=== PATIENT | male | born 1935 | race Caucasian/White ===

== ENCOUNTER 2016-05-01 18:55 | Inpatient (IN) | payer OTHER ==
[~2016-05-01] VITALS: Ht 182.9 cm; Wt 86.0 kg
[~2016-05-01 18:55] MED LIST: CIPR500T3 PO; DIVA125T2 PO; HYDR-3307; HYDR1TAB14 PO; INDO25CA PO; LEVO100C2; LEVO88TA2 PO; METF-86 PO; METO-95 PO; TIOT18CA INH; ZOLP-413 PO
[2016-05-01] MEDS ORDERED: SODIUM CHLORIDE FLUSH 10ML SYR IVF ONE (19:30)
[2016-05-01] MEDS ORDERED: ONDANSETRON 2MG/ML, 2ML IVPush ONE (19:30)
[2016-05-01] MEDS ORDERED: HYDR-3144 PO (19:47)
[2016-05-01] MEDS ORDERED: LOVA40TA2 PO (19:47)
[2016-05-01] MEDS ORDERED: MORPHINE SULFATE 4 MG/ML, 1ML ONE ×3 (20:17→22:39)
[2016-05-01] MEDS: MORPHINE SULFATE 4 MG/ML, 1ML IVPush PRN ×2 (20:20→22:43)
[2016-05-01 21:42] LABS: HEMOGLOBIN 12.8 g/dL (13.7-18.0)
[2016-05-01 21:54] LABS: BLOOD UREA NITROGEN 21 mg/dL (7-18)
[2016-05-01] MEDS ORDERED: HYDROcodone/APAP 10/325 MG TABLET PO SCH (22:30)
[2016-05-01] MEDS ORDERED: KETOROLAC 30 MG/1 ML IVPush PRN (22:30)
[2016-05-01] MEDS ORDERED: DOCUSATE 100 MG CAPSULE PO PRN (23:00)
[2016-05-01] MEDS ORDERED: POLYETHYLENE GLYCOL 17 GM PACKET PO PRN (23:00)
[2016-05-01] MEDS: INSULIN REGULAR 100 UNITS/ML, 3ML VIAL SQ-INSULIN SCH (23:00)
[2016-05-01] MEDS ORDERED: BISACODYL 10 MG SUPP PR PRN (23:00)
[2016-05-01] MEDS ORDERED: ACETAMINOPHEN 325 MG TABLET PO PRN (23:00)
[2016-05-01] MEDS ORDERED: NORCO MC SCH (23:30)
[2016-05-01 23:42] VITALS: BP 140/72
[2016-05-02] MEDS: MORPHINE SULFATE 4 MG/ML, 1ML IVPush PRN ×6 (00:14→22:17)
[2016-05-02 03:11] VITALS: BP 138/71
[2016-05-02] MEDS: LEVOTHYROXINE 88 MCG TABLET PO SCH (05:09)
[2016-05-02] MEDS: HYDROcodone/APAP 10/325 MG TABLET PO PRN ×3 (06:21→23:44)
[2016-05-02 06:45] VITALS: BP 123/66
[2016-05-02] MEDS: INSULIN REGULAR 100 UNITS/ML, 3ML VIAL SQ-INSULIN SCH ×4 (07:00→19:30)
[2016-05-02 07:42] LABS: BLOOD UREA NITROGEN 20 mg/dL (7-18)
[2016-05-02 07:46] LABS: ASPARTATE AMINO TRANSFERASE 13 U/L (15-37)
[2016-05-02] MEDS ORDERED: INDOMETHACIN 25 MG CAPSULE PO SCH (09:00)
[2016-05-02] MEDS: IPRATROPIUM 0.5 MG/2.5 ML INHA HHN SCH ×3 (09:00→21:00)
[2016-05-02] MEDS: METOPROLOL SUCCINATE 100 MG TAB.ER.24H PO SCH (09:00)
[2016-05-02 12:29] VITALS: BP 117/70
[2016-05-02 18:43] VITALS: BP 158/81
[2016-05-02] MEDS ORDERED: GLUCAGON 1 MG IM PRN (21:30)
[2016-05-02] MEDS ORDERED: DEXTROSE 4 GM TAB.CHEW PO PRN (21:30)
[2016-05-02] MEDS ORDERED: DEXTROSE 50%, 50ML SYRINGE IVPush PRN (21:30)
[2016-05-02] MEDS: DIVALPROEX 125 MG TABLET.DR PO SCH (22:17)
[2016-05-02] MEDS: LOVASTATIN 40 MG TABLET PO SCH (22:17)
[2016-05-02] MEDS: ZOLPIDEM 5MG TABLET PO SCH (22:19)
[2016-05-02] MEDS: HEPARIN 5,000 UNITS/ML, 1ML SQ SCH (22:29)
[2016-05-03 01:45] VITALS: BP 99/57
[2016-05-03] MEDS: MORPHINE SULFATE 4 MG/ML, 1ML IVPush PRN ×7 (02:11→22:39)
[2016-05-03] MEDS: IPRATROPIUM 0.5 MG/2.5 ML INHA HHN SCH ×4 (03:00→22:59)
[2016-05-03] MEDS: LEVOTHYROXINE 88 MCG TABLET PO SCH (05:07)
[2016-05-03] MEDS: HEPARIN 5,000 UNITS/ML, 1ML SQ SCH ×3 (05:10→22:40)
[2016-05-03] MEDS: HYDROcodone/APAP 10/325 MG TABLET PO PRN ×5 (05:11→22:50)
[2016-05-03] MEDS: INSULIN REGULAR 100 UNITS/ML, 3ML VIAL SQ-INSULIN SCH ×4 (07:00→21:18)
[2016-05-03 07:05] VITALS: BP 95/59
[2016-05-03] MEDS: METOPROLOL SUCCINATE 100 MG TAB.ER.24H PO SCH (09:00)
[2016-05-03] MEDS: SODIUM CHLORIDE FLUSH 10ML SYR IVF SCH ×2 (09:19→22:40)
[2016-05-03 12:53] VITALS: BP 128/83
[2016-05-03 18:46] VITALS: BP 105/69
[2016-05-03] MEDS: DIVALPROEX 125 MG TABLET.DR PO SCH (21:16)
[2016-05-03] MEDS: LOVASTATIN 40 MG TABLET PO SCH (21:18)
[2016-05-03] MEDS: ZOLPIDEM 5MG TABLET PO SCH (21:18)
[2016-05-04 00:59] VITALS: BP 161/75
[2016-05-04] MEDS: MORPHINE SULFATE 4 MG/ML, 1ML IVPush PRN ×5 (01:40→18:24)
[2016-05-04] MEDS: IPRATROPIUM 0.5 MG/2.5 ML INHA HHN SCH ×4 (03:00→21:00)
[2016-05-04] MEDS: HEPARIN 5,000 UNITS/ML, 1ML SQ SCH ×3 (05:49→20:32)
[2016-05-04] MEDS: LEVOTHYROXINE 88 MCG TABLET PO SCH (05:50)
[2016-05-04] MEDS: HYDROcodone/APAP 10/325 MG TABLET PO PRN ×4 (06:39→20:29)
[2016-05-04] MEDS: INSULIN REGULAR 100 UNITS/ML, 3ML VIAL SQ-INSULIN SCH ×2 (06:40→11:13)
[2016-05-04 07:13] VITALS: BP 100/64
[2016-05-04] MEDS: METOPROLOL SUCCINATE 100 MG TAB.ER.24H PO SCH (09:10)
[2016-05-04] MEDS: SODIUM CHLORIDE FLUSH 10ML SYR IVF SCH ×2 (09:14→20:32)
[2016-05-04 13:48] VITALS: BP 115/75
[2016-05-04 20:06] VITALS: BP 108/67
[2016-05-04] MEDS: DIVALPROEX 125 MG TABLET.DR PO SCH (20:28)
[2016-05-04] MEDS: ZOLPIDEM 5MG TABLET PO SCH (20:30)
[2016-05-04] MEDS: LOVASTATIN 40 MG TABLET PO SCH (20:30)
[2016-05-05] MEDS: IPRATROPIUM 0.5 MG/2.5 ML INHA HHN SCH ×2 (03:00→10:02)
[2016-05-05 03:30] VITALS: BP 133/75
[2016-05-05] MEDS: HYDROcodone/APAP 10/325 MG TABLET PO PRN ×3 (05:32→14:34)
[2016-05-05] MEDS: LEVOTHYROXINE 88 MCG TABLET PO SCH (05:32)
[2016-05-05] MEDS: HEPARIN 5,000 UNITS/ML, 1ML SQ SCH ×2 (05:32→14:27)
[2016-05-05 06:39] VITALS: BP 112/70
[2016-05-05 09:59] VITALS: BP 115/71
[2016-05-05] MEDS: SODIUM CHLORIDE FLUSH 10ML SYR IVF SCH (10:01)
[2016-05-05] MEDS: METOPROLOL SUCCINATE 100 MG TAB.ER.24H PO SCH (10:01)
[2016-05-05 13:29] VITALS: BP 115/69
== END 2016-05-05 18:15 | DRG 563 ==
LOC: ED 21:58 → 4NOR 22:00
PROC: 2W3FX1Z Immobilization of Left Hand using Splint (ICD-10-PCS; principal; 2016-05-01)
DX: S82.001A Unspecified fracture of right patella, initial encounter for closed fracture (principal); J96.10 Chronic respiratory failure, unspecified whether with hypoxia or hypercapnia; F11.20 Opioid dependence, uncomplicated; S63.502A Unspecified sprain of left wrist, initial encounter; M10.9 Gout, unspecified; J44.9 Chronic obstructive pulmonary disease, unspecified; E03.9 Hypothyroidism, unspecified; E11.9 Type 2 diabetes mellitus without complications; G89.29 Other chronic pain; M54.5 Low back pain; R56.9 Unspecified convulsions; W18.30XA Fall on same level, unspecified, initial encounter; Z87.891 Personal history of nicotine dependence; Z98.1 Arthrodesis status; Z99.81 Dependence on supplemental oxygen
CPT/HCPCS: 36415; 70450; 80048; 80053; 80164; 81001; 82040; 82962; 83735; 84100; 85025; 85610; 96374; 96376; J1644; J1885

== ENCOUNTER 2017-05-09 18:03 | Inpatient (IN) | payer OTHER ==
[~2017-05-09] VITALS: Ht 182.9 cm; Wt 94.7 kg
[~2017-05-09 18:03] MED LIST changes: +HYDR-3245 PO; +LOVA40TA2 PO; +METF-162 PO; -METF-86 PO
[2017-05-09 18:51] LABS: BASOPHILS % (AUTO) 0 % (0-1); EOSINOPHILS # (AUTO) 0.01 x10^3/uL (0-0.4); EOSINOPHILS % (AUTO) 0 % (1-7); LYMPHOCYTES # (AUTO) 0.43 x10^3/uL (1-3.4); LYMPHOCYTES % (AUTO) 6 % (22-44); MD NO; MEAN CORPUSCULAR HEMOGLOBIN 31.7 pg (27.5-34.5); MEAN CORPUSCULAR HGB CONC 33.2 g/dL (33.2-36.2); MEAN CORPUSCULAR VOLUME 95.5 fL (81-97); MEAN PLATELET VOLUME 7.3 fL (7.4-10.4); MONOCYTES # (AUTO) 0.71 x10^3/uL (0.2-0.8); MONOCYTES % (AUTO) 10 % (2-9); NEUTROPHILS # (AUTO) 5.77 x10^3/uL (1.8-6.8); NEUTROPHILS % (AUTO) 83 % (42-75); PLATELET COUNT 107 x10^3/uL (130-400); RED BLOOD COUNT 3.98 x10^6/uL (4.38-5.82); RED CELL DISTRIBUTION WIDTH 14.2 % (9.4-14.8)
[2017-05-09] MEDS ORDERED: OXYC10TA6 PO (18:51)
[2017-05-09] MEDS ORDERED: HYDR-879 PO (18:56)
[2017-05-09 19:00] LABS: ALANINE AMINOTRANSFERASE 26 U/L (12-78); ALBUMIN 2.7 g/dL (3.4-5.0); ANION GAP 7 mmol/L (5-15); CHLORIDE 99 mmol/L (98-107)
[2017-05-09 19:05] LABS: ALKALINE PHOSPHATASE 79 U/L (45-117); BILIRUBIN,TOTAL 0.7 mg/dL (0.2-1.0); CREATININE 1.14 mg/dL (0.7-1.3); TOTAL PROTEIN 7.2 g/dL (6.4-8.2); TROPONIN I < 0.015 ng/mL (0.000-0.045)
[2017-05-09 21:20] LABS: CULTURE INDICATED? YES; MICROSCOPIC INDICATED
[2017-05-09] MEDS ORDERED: SODIUM CHLORIDE 0.9% 1,000 ML IV SCH (23:09)
[2017-05-09] MEDS ORDERED: ACETAMINOPHEN 325 MG TABLET PO PRN (23:30)
[2017-05-09] MEDS ORDERED: ENALAPRILAT 1.25 MG/ML, 2ML IVPush PRN (23:30)
[2017-05-09] MEDS ORDERED: hydrALAzine 20 MG/ML, 1ML IVPush PRN (23:30)
[2017-05-09] MEDS ORDERED: BISACODYL 10 MG SUPP PR PRN (23:30)
[2017-05-09] MEDS ORDERED: POLYETHYLENE GLYCOL 17 GM PACKET PO PRN (23:30)
[2017-05-09] MEDS ORDERED: ONDANSETRON 2MG/ML, 2ML IVPush PRN (23:30)
[2017-05-09 23:45] VITALS: BP 133/77
[2017-05-09] MEDS ORDERED: IPRATROPIUM 0.5 MG/2.5 ML INHA NPPB SCH (23:45)
[2017-05-10] MEDS ORDERED: ACETAMINOPHEN 500 MG TABLET PO SCH
[2017-05-10] MEDS ORDERED: CEFTRIAXONE PMX 1GM/50ML 50 ML IV SCH
[2017-05-10 00:13] LABS: FREE T4 (FREE THYROXINE) 1.27 ng/dL (0.76-1.46); THYROID STIMULATING HORMONE 0.211 mIU/L (0.358-3.740)
[2017-05-10 00:15] VITALS: BP 133/77
[2017-05-10 00:24] LABS: HEMOGLOBIN A1C 5.5 % (4.2-6.3)
[2017-05-10] MEDS: DIVALPROEX 125 MG TABLET.DR PO SCH ×3 (00:40→21:19)
[2017-05-10] MEDS: ENOXAPARIN 40 MG/0.4 ML SQ SCH ×2 (00:41→21:19)
[2017-05-10] MEDS: LOVASTATIN 40 MG TABLET PO SCH ×2 (00:41→21:19)
[2017-05-10] MEDS: GABAPENTIN 100 MG CAPSULE PO SCH ×4 (00:41→21:19)
[2017-05-10 05:36] LABS: ALBUMIN 2.4 g/dL (3.4-5.0); ANION GAP 7 mmol/L (5-15); CALCIUM 7.9 mg/dL (8.5-10.1); CHLORIDE 100 mmol/L (98-107)
[2017-05-10 05:40] LABS: ALANINE AMINOTRANSFERASE 25 U/L (12-78); ALKALINE PHOSPHATASE 74 U/L (45-117); BILIRUBIN,TOTAL 0.5 mg/dL (0.2-1.0); CHOL/HDL RATIO 4.1; CHOLESTEROL, TOTAL 102 mg/dL (140-239); CREATININE 1.01 mg/dL (0.7-1.3); HDL CHOL % 25 % (26-37); HDL CHOLESTEROL (DIRECT) 25 mg/dL (40-60); LDL CHOLESTEROL,CALCULATED 51 mg/dL (54-169); TOTAL PROTEIN 6.7 g/dL (6.4-8.2); TRIGLYCERIDES 129 mg/dL (50-200); VLDL CHOLESTEROL 26 mg/dL (0-25)
[2017-05-10 05:43] LABS: MEAN CORPUSCULAR HEMOGLOBIN 31.7 pg (27.5-34.5); MEAN CORPUSCULAR HGB CONC 33.3 g/dL (33.2-36.2); MEAN CORPUSCULAR VOLUME 95.2 fL (81-97); RED CELL DISTRIBUTION WIDTH 14.4 % (9.4-14.8)
[2017-05-10 06:00] LABS: MD YES; MEAN PLATELET VOLUME 7.6 fL (7.4-10.4); PLATELET COUNT 99 x10^3/uL (130-400)
[2017-05-10 06:03] LABS: BAND#(MANUAL) 1.59 x10^3/uL; BANDS%(MANUAL) 23 % (0-7); EOS#(MANUAL) 0.07 x10^3/uL (0.0-0.4); EOS% (MANUAL) 1 % (1-7); LYMPH#(MANUAL) 0.69 x10^3/uL (1-3.4); LYMPHS% (MANUAL) 10 % (22-44); MONOS#(MANUAL) 0.55 x10^3/uL (0.3-2.7); MONOS% (MANUAL) 8 % (2-9); REACTIVE LYMPHS # (MANUAL) 0.07 x10^3/uL (0-0); REACTIVE LYMPHS % (MANUAL) 1 % (0-0); SEG#(MANUAL) 3.93 x10^3/uL (1.8-6.8); SEGS% (MANUAL) 57 % (42-75)
[2017-05-10 06:06] LABS: <PLATELET ESTIMATE> DECREASED
[2017-05-10 06:07] LABS: <PLT MORPHOLOGY> NORMAL PLT MORPH
[2017-05-10 06:08] LABS: POLYCHROMASIA 1+
[2017-05-10] MEDS: LEVOTHYROXINE 88 MCG TABLET PO SCH (06:15)
[2017-05-10] MEDS ORDERED: IPRATROPIUM 0.5 MG/2.5 ML INHA NPPB SCH (07:00)
[2017-05-10 07:54] VITALS: BP 118/72
[2017-05-10] MEDS: INDOMETHACIN 25 MG CAPSULE PO SCH (08:52)
[2017-05-10] MEDS: SENNA/DOCUSATE TABLET PO SCH (08:52)
[2017-05-10] MEDS: METOPROLOL SUCCINATE 100 MG TAB.ER.24H PO SCH (08:55)
[2017-05-10] MEDS: IPRATROPIUM 0.5 MG/2.5 ML INHA NPPB SCH (09:00)
[2017-05-10] MEDS: ONDANSETRON 2MG/ML, 2ML IVPush PRN (14:08)
[2017-05-10 15:00] VITALS: BP 102/66
[2017-05-10 19:29] VITALS: BP 113/73
[2017-05-10] MEDS: ACETAMINOPHEN 500 MG TABLET PO SCH (21:19)
[2017-05-11 01:45] VITALS: BP 113/74
[2017-05-11] MEDS: LEVOTHYROXINE 88 MCG TABLET PO SCH (05:00)
[2017-05-11] MEDS: ACETAMINOPHEN 500 MG TABLET PO SCH ×3 (05:00→21:52)
[2017-05-11 07:45] VITALS: BP 103/62
[2017-05-11] MEDS: IPRATROPIUM 0.5 MG/2.5 ML INHA NPPB SCH (08:50)
[2017-05-11] MEDS: METOPROLOL SUCCINATE 100 MG TAB.ER.24H PO SCH (09:00)
[2017-05-11] MEDS: SENNA/DOCUSATE TABLET PO SCH (09:19)
[2017-05-11] MEDS: INDOMETHACIN 25 MG CAPSULE PO SCH (09:19)
[2017-05-11] MEDS: GABAPENTIN 100 MG CAPSULE PO SCH ×3 (09:20→21:52)
[2017-05-11] MEDS: DIVALPROEX 125 MG TABLET.DR PO SCH ×2 (09:20→21:52)
[2017-05-11 14:10] VITALS: BP 123/77
[2017-05-11 20:01] VITALS: BP 115/67
[2017-05-11] MEDS: LOVASTATIN 40 MG TABLET PO SCH (21:52)
[2017-05-11] MEDS: ENOXAPARIN 40 MG/0.4 ML SQ SCH (21:53)
[2017-05-12 01:56] VITALS: BP 122/84
[2017-05-12] MEDS: ACETAMINOPHEN 500 MG TABLET PO SCH ×3 (05:57→20:14)
[2017-05-12] MEDS: LEVOTHYROXINE 88 MCG TABLET PO SCH (05:58)
[2017-05-12] MEDS: METHOCARBAMOL 750 MG TABLET PO PRN ×2 (06:03→16:36)
[2017-05-12] MEDS ORDERED: ACET500T71 PO (07:16)
[2017-05-12] MEDS ORDERED: GABA-826 PO (07:16)
[2017-05-12] MEDS ORDERED: METH750T2 PO (07:16)
[2017-05-12 08:12] VITALS: BP 125/77
[2017-05-12] MEDS: ONDANSETRON 2MG/ML, 2ML IVPush PRN (09:05)
[2017-05-12] MEDS: SENNA/DOCUSATE TABLET PO SCH (09:05)
[2017-05-12] MEDS: METOPROLOL SUCCINATE 100 MG TAB.ER.24H PO SCH (09:06)
[2017-05-12] MEDS: DIVALPROEX 125 MG TABLET.DR PO SCH ×2 (09:06→20:14)
[2017-05-12] MEDS: INDOMETHACIN 25 MG CAPSULE PO SCH (09:06)
[2017-05-12] MEDS: GABAPENTIN 100 MG CAPSULE PO SCH ×3 (09:06→20:14)
[2017-05-12] MEDS: IPRATROPIUM 0.5 MG/2.5 ML INHA NPPB SCH (09:15)
[2017-05-12 12:41] VITALS: BP 148/78
[2017-05-12 19:39] VITALS: BP 123/71
[2017-05-12] MEDS: LOVASTATIN 40 MG TABLET PO SCH (20:14)
[2017-05-13 02:05] VITALS: BP 127/71
[2017-05-13] MEDS: ACETAMINOPHEN 500 MG TABLET PO SCH ×2 (03:48→12:44)
[2017-05-13] MEDS: ENOXAPARIN 40 MG/0.4 ML SQ SCH (03:49)
[2017-05-13] MEDS: LEVOTHYROXINE 88 MCG TABLET PO SCH (06:21)
[2017-05-13 06:50] VITALS: BP 151/80
[2017-05-13] MEDS: SENNA/DOCUSATE TABLET PO SCH (08:52)
[2017-05-13] MEDS: INDOMETHACIN 25 MG CAPSULE PO SCH (08:52)
[2017-05-13] MEDS: DIVALPROEX 125 MG TABLET.DR PO SCH (08:52)
[2017-05-13] MEDS: GABAPENTIN 100 MG CAPSULE PO SCH ×2 (08:52→16:25)
[2017-05-13] MEDS: METOPROLOL SUCCINATE 100 MG TAB.ER.24H PO SCH (08:52)
[2017-05-13] MEDS ORDERED: IPRATROPIUM 0.5 MG/2.5 ML INHA NPPB PRN (09:00)
[2017-05-13 14:53] VITALS: BP 142/73
[2017-05-13 17:00] VITALS: BP 140/72
== END 2017-05-13 17:31 | DRG 91 ==
LOC: ED 22:36 → EDIP 23:03 → 4NOR 23:35
PROVIDERS: ADMIT Internal Medicine; ATTEND Internal Medicine
DX: G92 Toxic encephalopathy (principal); E43 Unspecified severe protein-calorie malnutrition; J96.10 Chronic respiratory failure, unspecified whether with hypoxia or hypercapnia; D69.6 Thrombocytopenia, unspecified; D64.9 Anemia, unspecified; Z99.81 Dependence on supplemental oxygen; E11.9 Type 2 diabetes mellitus without complications; J98.11 Atelectasis; E03.9 Hypothyroidism, unspecified; F11.229 Opioid dependence with intoxication, unspecified; G40.909 Epilepsy, unspecified, not intractable, without status epilepticus; I70.0 Atherosclerosis of aorta; G89.29 Other chronic pain; I71.4 Abdominal aortic aneurysm, without rupture; J44.9 Chronic obstructive pulmonary disease, unspecified; K59.00 Constipation, unspecified; M1A.9XX0 Chronic gout, unspecified, without tophus (tophi); M51.36 Other intervertebral disc degeneration, lumbar region; R32 Unspecified urinary incontinence; R62.7 Adult failure to thrive; Z87.891 Personal history of nicotine dependence; Z98.1 Arthrodesis status; Z68.28 Body mass index [BMI] 28.0-28.9, adult; T40.605A Adverse effect of unspecified narcotics, initial encounter; Y92.89 Other specified places as the place of occurrence of the external cause
CPT/HCPCS: 36415; 70450; 71045; 72110; 72125; 72128; 72131; 80053; 80061; 81001; 82306; 82607; 83036; 83735; 84439; 84443; 84484; 85025; 87086; 93005; 94640; 99285; J0696; J1650; J2405; J7644; J7030

== ENCOUNTER 2017-05-30 15:46 | Inpatient (IN) | payer OTHER ==
[~2017-05-30] VITALS: Ht 182.9 cm; Wt 97.9 kg
[~2017-05-30 15:46] MED LIST changes: +ACET500T71 PO; +GABA-826 PO; +HYDR-879 PO; +METH750T2 PO; +OXYC10TA6 PO
[2017-05-30] MEDS ORDERED: SODIUM CHLORIDE FLUSH 10ML SYR IVF ONE (16:30)
[2017-05-30 16:47] LABS: ALANINE AMINOTRANSFERASE 33 U/L (12-78); ALBUMIN 3.2 g/dL (3.4-5.0); ANION GAP 6 mmol/L (5-15); CALCIUM 8.2 mg/dL (8.5-10.1); CHLORIDE 99 mmol/L (98-107); CREATININE 1.27 mg/dL (0.7-1.3)
[2017-05-30 16:51] LABS: ALKALINE PHOSPHATASE 91 U/L (45-117); BILIRUBIN,TOTAL 0.8 mg/dL (0.2-1.0); TOTAL PROTEIN 7.9 g/dL (6.4-8.2); TROPONIN I < 0.015 ng/mL (0.000-0.045)
[2017-05-30 17:16] LABS: MEAN CORPUSCULAR HEMOGLOBIN 31.6 pg (27.5-34.5); MEAN CORPUSCULAR HGB CONC 33.5 g/dL (33.2-36.2); MEAN CORPUSCULAR VOLUME 94.2 fL (81-97); MEAN PLATELET VOLUME 8.3 fL (7.4-10.4); PLATELET COUNT 95 x10^3/uL (130-400); RED BLOOD COUNT 4.27 x10^6/uL (4.38-5.82); RED CELL DISTRIBUTION WIDTH 14.9 % (9.4-14.8)
[2017-05-30 17:17] LABS: MD YES
[2017-05-30 17:20] LABS: BAND#(MANUAL) 0.73 x10^3/uL; BANDS%(MANUAL) 11 % (0-7); LYMPH#(MANUAL) 0.59 x10^3/uL (1-3.4); LYMPHS% (MANUAL) 9 % (22-44); MONOS#(MANUAL) 0.13 x10^3/uL (0.3-2.7); MONOS% (MANUAL) 2 % (2-9); SEG#(MANUAL) 5.15 x10^3/uL (1.8-6.8); SEGS% (MANUAL) 78 % (42-75)
[2017-05-30 17:21] LABS: <PLATELET ESTIMATE> DECREASED; <PLT MORPHOLOGY> NORMAL PLT MORPH; <RBC MORPHOLOGY> NORMAL
[2017-05-30 17:31] LABS: MICROSCOPIC AUTO
[2017-05-30 17:34] LABS: CULTURE INDICATED? NO
[2017-05-30] MEDS ORDERED: SODIUM CHLORIDE FLUSH 10ML SYR IVF PRN (18:30)
[2017-05-30] MEDS ORDERED: ENOXAPARIN 40 MG/0.4 ML SQ SCH (19:00)
[2017-05-30] MEDS ORDERED: ONDANSETRON ODT 4 MG PO PRN (19:00)
[2017-05-30] MEDS ORDERED: hydrALAzine 20 MG/ML, 1ML IVPush PRN (19:00)
[2017-05-30 20:57] VITALS: BP 122/73
[2017-05-30] MEDS: LOVASTATIN 40 MG TABLET PO SCH (21:23)
[2017-05-30] MEDS: DIVALPROEX 125 MG TABLET.DR PO SCH (21:23)
[2017-05-30 21:50] VITALS: BP 104/62
[2017-05-30] MEDS: SODIUM CHLORIDE 0.9% 1,000 ML IV SCH (22:44)
[2017-05-30] MEDS: IPRATROPIUM 0.5 MG/2.5 ML INHA NPPB SCH (23:48)
[2017-05-31 00:17] VITALS: BP 106/68
[2017-05-31] MEDS: ACETAMINOPHEN 500 MG TABLET PO PRN ×3 (00:25→19:04)
[2017-05-31] MEDS: GABAPENTIN 100 MG CAPSULE PO PRN (02:13)
[2017-05-31] MEDS: IPRATROPIUM 0.5 MG/2.5 ML INHA NPPB SCH ×4 (03:05→19:35)
[2017-05-31] MEDS: LEVOTHYROXINE 88 MCG TABLET PO SCH (05:32)
[2017-05-31 06:00] LABS: MEAN CORPUSCULAR HEMOGLOBIN 31.5 pg (27.5-34.5); MEAN CORPUSCULAR HGB CONC 33.4 g/dL (33.2-36.2); MEAN CORPUSCULAR VOLUME 94.4 fL (81-97); MEAN PLATELET VOLUME 9.2 fL (7.4-10.4); PLATELET COUNT 83 x10^3/uL (130-400); RED BLOOD COUNT 3.83 x10^6/uL (4.38-5.82); RED CELL DISTRIBUTION WIDTH 15.1 % (9.4-14.8)
[2017-05-31 06:06] LABS: ANION GAP 8 mmol/L (5-15); CALCIUM 8.3 mg/dL (8.5-10.1); CHLORIDE 101 mmol/L (98-107)
[2017-05-31] MEDS: SODIUM CHLORIDE 0.9% 1,000 ML IV SCH ×3 (06:18→23:44)
[2017-05-31 06:19] LABS: CREATININE 1.03 mg/dL (0.7-1.3); THYROID STIMULATING HORMONE 0.184 mIU/L (0.358-3.740)
[2017-05-31 06:38] LABS: MD YES
[2017-05-31 06:41] LABS: <PLATELET ESTIMATE> DECREASED; <PLT MORPHOLOGY> NORMAL PLT MORPH; <RBC MORPHOLOGY> NORMAL; EOS#(MANUAL) 0.06 x10^3/uL (0.0-0.4); EOS% (MANUAL) 1 % (1-7); LYMPH#(MANUAL) 0.63 x10^3/uL (1-3.4); LYMPHS% (MANUAL) 11 % (22-44); MONOS#(MANUAL) 0.63 x10^3/uL (0.3-2.7); MONOS% (MANUAL) 11 % (2-9); SEG#(MANUAL) 4.39 x10^3/uL (1.8-6.8); SEGS% (MANUAL) 77 % (42-75)
[2017-05-31 07:39] VITALS: BP 115/69
[2017-05-31] MEDS: DIVALPROEX 125 MG TABLET.DR PO SCH ×2 (08:43→20:25)
[2017-05-31] MEDS: METOPROLOL SUCCINATE 100 MG TAB.ER.24H PO SCH (08:43)
[2017-05-31] MEDS: INDOMETHACIN 25 MG CAPSULE PO SCH (08:43)
[2017-05-31] MEDS ORDERED: IPRATROPIUM 0.5 MG/2.5 ML INHA NPPB SCH (15:30)
[2017-05-31 17:03] VITALS: BP 107/60
[2017-05-31 19:22] VITALS: BP 102/63
[2017-05-31] MEDS: LOVASTATIN 40 MG TABLET PO SCH (20:25)
[2017-06-01 01:14] VITALS: BP 103/63
[2017-06-01 05:09] LABS: MEAN CORPUSCULAR HEMOGLOBIN 31.4 pg (27.5-34.5); MEAN CORPUSCULAR HGB CONC 33.2 g/dL (33.2-36.2); MEAN CORPUSCULAR VOLUME 94.4 fL (81-97); RED BLOOD COUNT 3.64 x10^6/uL (4.38-5.82); RED CELL DISTRIBUTION WIDTH 15.1 % (9.4-14.8)
[2017-06-01 05:10] LABS: CALCIUM 7.7 mg/dL (8.5-10.1); CHLORIDE 105 mmol/L (98-107)
[2017-06-01 05:16] LABS: HEMOGLOBIN A1C 5.5 % (4.2-6.3)
[2017-06-01 05:40] LABS: % IRON SATURATION 9 % (20-55); ANION GAP 8 mmol/L (5-15); CREATININE 0.92 mg/dL (0.7-1.3); FOLATE LEVEL 13.3 ng/mL (3.1-17.5); IRON LEVEL 20 mcg/dL (65-175); TOTAL IRON BINDING CAPACITY 218 mcg/dL (250-450)
[2017-06-01 05:45] LABS: BASOPHILS % (AUTO) 0 % (0-1); EOSINOPHILS # (AUTO) 0.05 x10^3/uL (0-0.4); EOSINOPHILS % (AUTO) 1 % (1-7); LYMPHOCYTES # (AUTO) 0.42 x10^3/uL (1-3.4); LYMPHOCYTES % (AUTO) 8 % (22-44); MD SCAN; MEAN PLATELET VOLUME 8.4 fL (7.4-10.4); MONOCYTES # (AUTO) 0.45 x10^3/uL (0.2-0.8); MONOCYTES % (AUTO) 9 % (2-9); NEUTROPHILS # (AUTO) 4.22 x10^3/uL (1.8-6.8); NEUTROPHILS % (AUTO) 82 % (42-75); PLATELET COUNT 67 x10^3/uL (130-400)
[2017-06-01] MEDS: LEVOTHYROXINE 88 MCG TABLET PO SCH (06:07)
[2017-06-01 06:50] VITALS: BP 125/68
[2017-06-01 07:20] LABS: INTERNATIONAL NORMALIZED RATIO 1.2 (0.93-1.1); PROTHROMBIN TIME 12.3 Seconds (9.6-11.5)
[2017-06-01] MEDS: IPRATROPIUM 0.5 MG/2.5 ML INHA NPPB SCH ×2 (07:23→18:48)
[2017-06-01] MEDS: DIVALPROEX 125 MG TABLET.DR PO SCH ×2 (09:30→20:10)
[2017-06-01] MEDS: SODIUM CHLORIDE 0.9% 1,000 ML IV SCH ×2 (09:31→19:30)
[2017-06-01] MEDS: METOPROLOL SUCCINATE 100 MG TAB.ER.24H PO SCH (09:31)
[2017-06-01] MEDS: INDOMETHACIN 25 MG CAPSULE PO SCH (09:31)
[2017-06-01] MEDS ORDERED: OXYC10TA6 PO (10:21)
[2017-06-01] MEDS ORDERED: ALLO300T PO (10:21)
[2017-06-01] MEDS ORDERED: LEVO100T5 PO (10:29)
[2017-06-01] MEDS ORDERED: GABA300C10 PO (10:29)
[2017-06-01] MEDS: GABAPENTIN 100 MG CAPSULE PO PRN (10:55)
[2017-06-01 12:50] VITALS: BP 110/66
[2017-06-01 13:00] VITALS: BP 125/72
[2017-06-01] MEDS ORDERED: VANCOMYCIN PER PHARMACY MC PRN (13:00)
[2017-06-01] MEDS ORDERED: PHARMACOKINETIC MONITORING MC PRN (13:30)
[2017-06-01] MEDS: VANCOMYCIN 1,900 MG in SODIUM CHLORIDE 0.9% 250 ML IV SCH (14:46)
[2017-06-01 19:14] VITALS: BP 132/76
[2017-06-01] MEDS: LOVASTATIN 40 MG TABLET PO SCH (20:10)
[2017-06-02 01:33] VITALS: BP 124/72
[2017-06-02] MEDS: SODIUM CHLORIDE 0.9% 1,000 ML IV SCH ×2 (03:41→14:06)
[2017-06-02 05:07] LABS: MEAN CORPUSCULAR HEMOGLOBIN 31.5 pg (27.5-34.5); MEAN CORPUSCULAR HGB CONC 33.4 g/dL (33.2-36.2); MEAN CORPUSCULAR VOLUME 94.5 fL (81-97); RED BLOOD COUNT 3.53 x10^6/uL (4.38-5.82); RED CELL DISTRIBUTION WIDTH 14.9 % (9.4-14.8)
[2017-06-02 05:11] LABS: CHLORIDE 107 mmol/L (98-107); CREATININE 0.72 mg/dL (0.7-1.3)
[2017-06-02 05:12] LABS: ANION GAP 5 mmol/L (5-15); CALCIUM 7.9 mg/dL (8.5-10.1)
[2017-06-02 05:31] LABS: BASOPHILS # (AUTO) 0.02 x10^3/uL (0-0.1); BASOPHILS % (AUTO) 0 % (0-1); EOSINOPHILS # (AUTO) 0.09 x10^3/uL (0-0.4); EOSINOPHILS % (AUTO) 2 % (1-7); LYMPHOCYTES # (AUTO) 0.71 x10^3/uL (1-3.4); LYMPHOCYTES % (AUTO) 17 % (22-44); MD SCAN; MEAN PLATELET VOLUME 8.4 fL (7.4-10.4); MONOCYTES # (AUTO) 0.43 x10^3/uL (0.2-0.8); MONOCYTES % (AUTO) 10 % (2-9); NEUTROPHILS # (AUTO) 2.87 x10^3/uL (1.8-6.8); NEUTROPHILS % (AUTO) 70 % (42-75); PLATELET COUNT 92 x10^3/uL (130-400)
[2017-06-02] MEDS: LEVOTHYROXINE 88 MCG TABLET PO SCH (06:25)
[2017-06-02 07:48] VITALS: BP 127/78
[2017-06-02] MEDS: DIVALPROEX 125 MG TABLET.DR PO SCH ×2 (08:58→20:18)
[2017-06-02] MEDS: INDOMETHACIN 25 MG CAPSULE PO SCH (08:58)
[2017-06-02] MEDS: METOPROLOL SUCCINATE 100 MG TAB.ER.24H PO SCH (08:59)
[2017-06-02] MEDS: ACETAMINOPHEN 500 MG TABLET PO PRN ×2 (09:00→17:28)
[2017-06-02] MEDS: IPRATROPIUM 0.5 MG/2.5 ML INHA NPPB SCH ×2 (09:15→21:00)
[2017-06-02] MEDS ORDERED: OMNIPAQUE 350 MG/ML, 100ML BOTTLE ONE (12:17)
[2017-06-02 13:11] VITALS: BP 110/65
[2017-06-02] MEDS: VANCOMYCIN 1,900 MG in SODIUM CHLORIDE 0.9% 250 ML IV SCH (14:05)
[2017-06-02 19:00] VITALS: BP 160/75
[2017-06-02] MEDS: LOVASTATIN 40 MG TABLET PO SCH (20:18)
[2017-06-03] MEDS: SODIUM CHLORIDE 0.9% 1,000 ML IV SCH ×3 (00:08→20:24)
[2017-06-03] MEDS: METHOCARBAMOL 750 MG TABLET PO PRN ×3 (00:12→16:40)
[2017-06-03 01:47] VITALS: BP 143/82
[2017-06-03 05:31] LABS: BASOPHILS # (AUTO) 0.01 x10^3/uL (0-0.1); BASOPHILS % (AUTO) 0 % (0-1); EOSINOPHILS % (AUTO) 3 % (1-7); LYMPHOCYTES # (AUTO) 0.77 x10^3/uL (1-3.4); LYMPHOCYTES % (AUTO) 22 % (22-44); MD NO; MEAN CORPUSCULAR VOLUME 93.8 fL (81-97); MEAN PLATELET VOLUME 8.2 fL (7.4-10.4); MONOCYTES # (AUTO) 0.32 x10^3/uL (0.2-0.8); MONOCYTES % (AUTO) 9 % (2-9); NEUTROPHILS # (AUTO) 2.24 x10^3/uL (1.8-6.8); NEUTROPHILS % (AUTO) 65 % (42-75); PLATELET COUNT 110 x10^3/uL (130-400); RED BLOOD COUNT 3.35 x10^6/uL (4.38-5.82); RED CELL DISTRIBUTION WIDTH 14.9 % (9.4-14.8)
[2017-06-03 05:40] LABS: ANION GAP 7 mmol/L (5-15); CALCIUM 8.1 mg/dL (8.5-10.1); CHLORIDE 106 mmol/L (98-107); CREATININE 0.75 mg/dL (0.7-1.3)
[2017-06-03] MEDS ORDERED: POTASSIUM CHLORIDE 20 MEQ TAB.ER.PRT PO ONE (06:30)
[2017-06-03] MEDS: LEVOTHYROXINE 88 MCG TABLET PO SCH (06:40)
[2017-06-03 06:48] VITALS: BP 136/74
[2017-06-03] MEDS: IPRATROPIUM 0.5 MG/2.5 ML INHA NPPB SCH (09:20)
[2017-06-03] MEDS: INDOMETHACIN 25 MG CAPSULE PO SCH (10:00)
[2017-06-03] MEDS: METOPROLOL SUCCINATE 100 MG TAB.ER.24H PO SCH (10:00)
[2017-06-03] MEDS: DIVALPROEX 125 MG TABLET.DR PO SCH ×2 (10:00→20:24)
[2017-06-03 13:20] VITALS: BP 139/79
[2017-06-03] MEDS: VANCOMYCIN 1,900 MG in SODIUM CHLORIDE 0.9% 250 ML IV SCH (13:53)
[2017-06-03 19:02] VITALS: BP 132/71
[2017-06-03] MEDS: LOVASTATIN 40 MG TABLET PO SCH (20:24)
[2017-06-03] MEDS ORDERED: IPRATROPIUM 0.5 MG/2.5 ML INHA NPPB SCH (21:00)
[2017-06-04 03:19] VITALS: BP 146/77
[2017-06-04] MEDS: SODIUM CHLORIDE 0.9% 1,000 ML IV SCH ×3 (04:07→20:01)
[2017-06-04] MEDS: GABAPENTIN 100 MG CAPSULE PO PRN ×2 (04:20→14:12)
[2017-06-04 04:49] LABS: BASOPHILS # (AUTO) 0.02 x10^3/uL (0-0.1); BASOPHILS % (AUTO) 1 % (0-1); EOSINOPHILS # (AUTO) 0.13 x10^3/uL (0-0.4); EOSINOPHILS % (AUTO) 4 % (1-7); LYMPHOCYTES # (AUTO) 0.89 x10^3/uL (1-3.4); LYMPHOCYTES % (AUTO) 25 % (22-44); MD NO; MEAN CORPUSCULAR HEMOGLOBIN 31.7 pg (27.5-34.5); MEAN CORPUSCULAR HGB CONC 33.8 g/dL (33.2-36.2); MEAN PLATELET VOLUME 7.6 fL (7.4-10.4); MONOCYTES # (AUTO) 0.26 x10^3/uL (0.2-0.8); MONOCYTES % (AUTO) 7 % (2-9); NEUTROPHILS # (AUTO) 2.27 x10^3/uL (1.8-6.8); NEUTROPHILS % (AUTO) 64 % (42-75); PLATELET COUNT 134 x10^3/uL (130-400)
[2017-06-04 04:50] LABS: ANION GAP 8 mmol/L (5-15); CALCIUM 7.7 mg/dL (8.5-10.1); CHLORIDE 108 mmol/L (98-107); CREATININE 0.71 mg/dL (0.7-1.3)
[2017-06-04] MEDS ORDERED: LEVOTHYROXINE 100 MCG TABLET PO SCH (06:00)
[2017-06-04] MEDS: LEVOTHYROXINE 88 MCG TABLET PO SCH (06:04)
[2017-06-04] MEDS: METOPROLOL SUCCINATE 100 MG TAB.ER.24H PO SCH (09:00)
[2017-06-04] MEDS: INDOMETHACIN 25 MG CAPSULE PO SCH (09:35)
[2017-06-04] MEDS: DIVALPROEX 125 MG TABLET.DR PO SCH ×2 (09:35→20:01)
[2017-06-04] MEDS: ALLOPURINOL 300 MG TABLET PO SCH (09:35)
[2017-06-04 13:30] VITALS: BP 153/76
[2017-06-04] MEDS: METHOCARBAMOL 750 MG TABLET PO PRN (14:12)
[2017-06-04 19:27] VITALS: BP 158/82
[2017-06-04] MEDS: LOVASTATIN 40 MG TABLET PO SCH (20:01)
[2017-06-05 02:09] VITALS: BP 157/80
[2017-06-05] MEDS: SODIUM CHLORIDE 0.9% 1,000 ML IV SCH ×3 (03:43→20:33)
[2017-06-05] MEDS: GABAPENTIN 100 MG CAPSULE PO PRN (03:44)
[2017-06-05] MEDS: LEVOTHYROXINE 88 MCG TABLET PO SCH (05:16)
[2017-06-05 09:02] VITALS: BP 149/76
[2017-06-05] MEDS: ALLOPURINOL 300 MG TABLET PO SCH (09:18)
[2017-06-05] MEDS: DIVALPROEX 125 MG TABLET.DR PO SCH ×2 (09:18→20:33)
[2017-06-05] MEDS: INDOMETHACIN 25 MG CAPSULE PO SCH (09:18)
[2017-06-05] MEDS: METOPROLOL SUCCINATE 100 MG TAB.ER.24H PO SCH (09:18)
[2017-06-05 13:26] VITALS: BP 145/78
[2017-06-05 18:32] VITALS: BP 155/75
[2017-06-05] MEDS: LOVASTATIN 40 MG TABLET PO SCH (20:33)
[2017-06-06] MEDS: GABAPENTIN 100 MG CAPSULE PO PRN (00:59)
[2017-06-06 01:04] VITALS: BP 163/71
[2017-06-06] MEDS: SODIUM CHLORIDE 0.9% 1,000 ML IV SCH ×3 (04:02→23:19)
[2017-06-06] MEDS: LEVOTHYROXINE 88 MCG TABLET PO SCH (05:21)
[2017-06-06 06:08] VITALS: BP 124/63
[2017-06-06] MEDS: INDOMETHACIN 25 MG CAPSULE PO SCH (09:59)
[2017-06-06] MEDS: DIVALPROEX 125 MG TABLET.DR PO SCH ×2 (09:59→20:41)
[2017-06-06] MEDS: ALLOPURINOL 300 MG TABLET PO SCH (09:59)
[2017-06-06] MEDS: METOPROLOL SUCCINATE 100 MG TAB.ER.24H PO SCH (09:59)
[2017-06-06] MEDS: METHOCARBAMOL 750 MG TABLET PO PRN ×2 (09:59→17:43)
[2017-06-06 14:19] VITALS: BP 115/66
[2017-06-06 19:12] VITALS: BP 141/58
[2017-06-06] MEDS: LOVASTATIN 40 MG TABLET PO SCH (20:41)
[2017-06-07] MEDS: ACETAMINOPHEN 500 MG TABLET PO PRN (01:57)
[2017-06-07 02:03] VITALS: BP 126/81
[2017-06-07] MEDS: METHOCARBAMOL 750 MG TABLET PO PRN ×3 (02:17→15:30)
[2017-06-07] MEDS ORDERED: VANCOMYCIN PER PHARMACY MC PRN (03:00)
[2017-06-07] MEDS: VANCOMYCIN 1,800 MG in SODIUM CHLORIDE 0.9% 250 ML IV SCH (03:28)
[2017-06-07] MEDS ORDERED: PHARMACOKINETIC MONITORING MC PRN (03:30)
[2017-06-07] MEDS ORDERED: PHARMACOKINETIC CONSULTATION MC ONE (03:30)
[2017-06-07] MEDS: LEVOTHYROXINE 88 MCG TABLET PO SCH (06:00)
[2017-06-07 08:26] VITALS: BP 125/69
[2017-06-07] MEDS: INDOMETHACIN 25 MG CAPSULE PO SCH (08:48)
[2017-06-07] MEDS: METOPROLOL SUCCINATE 100 MG TAB.ER.24H PO SCH (08:48)
[2017-06-07] MEDS: DIVALPROEX 125 MG TABLET.DR PO SCH ×2 (08:48→19:39)
[2017-06-07] MEDS: ALLOPURINOL 300 MG TABLET PO SCH (08:48)
[2017-06-07] MEDS: SODIUM CHLORIDE 0.9% 1,000 ML IV SCH ×2 (08:51→17:07)
[2017-06-07 13:14] VITALS: BP 128/69
[2017-06-07 19:21] VITALS: BP 163/71
[2017-06-07] MEDS: LOVASTATIN 40 MG TABLET PO SCH (19:39)
[2017-06-07 20:15] VITALS: BP 168/81
[2017-06-08] MEDS: SODIUM CHLORIDE 0.9% 1,000 ML IV SCH ×3 (00:19→16:11)
[2017-06-08] MEDS: METHOCARBAMOL 750 MG TABLET PO PRN ×3 (00:19→20:52)
[2017-06-08] MEDS: ACETAMINOPHEN 500 MG TABLET PO PRN ×3 (02:22→20:52)
[2017-06-08 02:26] VITALS: BP 161/79
[2017-06-08] MEDS: VANCOMYCIN 1,800 MG in SODIUM CHLORIDE 0.9% 250 ML IV SCH ×2 (04:52→10:30)
[2017-06-08] MEDS: LEVOTHYROXINE 88 MCG TABLET PO SCH (05:58)
[2017-06-08] MEDS ORDERED: AMLODIPINE 5 MG TABLET PO ONE (07:30)
[2017-06-08 07:40] VITALS: BP 130/68
[2017-06-08] MEDS: ALLOPURINOL 300 MG TABLET PO SCH (09:09)
[2017-06-08] MEDS: INDOMETHACIN 25 MG CAPSULE PO SCH (09:10)
[2017-06-08] MEDS: METOPROLOL SUCCINATE 100 MG TAB.ER.24H PO SCH (09:10)
[2017-06-08] MEDS: DIVALPROEX 125 MG TABLET.DR PO SCH ×2 (09:22→20:52)
[2017-06-08 13:33] VITALS: BP 124/66
[2017-06-08 19:17] VITALS: BP 159/70
[2017-06-08] MEDS: LOVASTATIN 40 MG TABLET PO SCH (20:52)
[2017-06-09] MEDS: SODIUM CHLORIDE 0.9% 1,000 ML IV SCH ×4 (00:17→23:59)
[2017-06-09] MEDS: GABAPENTIN 100 MG CAPSULE PO PRN (00:17)
[2017-06-09 00:47] VITALS: BP 120/61
[2017-06-09] MEDS: DIPHENHYDRAMINE 25 MG CAPSULE PO PRN (02:57)
[2017-06-09] MEDS: LEVOTHYROXINE 88 MCG TABLET PO SCH (05:40)
[2017-06-09] MEDS: METHOCARBAMOL 750 MG TABLET PO PRN ×2 (05:52→20:46)
[2017-06-09 07:53] VITALS: BP 138/61
[2017-06-09] MEDS: DIVALPROEX 125 MG TABLET.DR PO SCH ×2 (08:48→20:46)
[2017-06-09] MEDS: METOPROLOL SUCCINATE 100 MG TAB.ER.24H PO SCH (08:49)
[2017-06-09] MEDS: ALLOPURINOL 300 MG TABLET PO SCH (08:49)
[2017-06-09] MEDS: INDOMETHACIN 25 MG CAPSULE PO SCH (08:58)
[2017-06-09] MEDS: VANCOMYCIN 1,800 MG in SODIUM CHLORIDE 0.9% 250 ML IV SCH (09:17)
[2017-06-09] MEDS ORDERED: METH750T87 PO (10:56)
[2017-06-09 15:59] VITALS: BP 128/67
[2017-06-09 19:24] VITALS: BP 124/63
[2017-06-09] MEDS: LOVASTATIN 40 MG TABLET PO SCH (20:46)
[2017-06-10] MEDS ORDERED: FUROSEMIDE 40 MG/4 ML IV ONE (01:30)
[2017-06-10 01:33] VITALS: BP 144/88
[2017-06-10] MEDS: ACETAMINOPHEN 500 MG TABLET PO PRN ×2 (01:58→21:16)
[2017-06-10] MEDS: METHOCARBAMOL 750 MG TABLET PO PRN ×2 (01:58→21:16)
[2017-06-10] MEDS: LEVOTHYROXINE 88 MCG TABLET PO SCH (06:03)
[2017-06-10 07:21] VITALS: BP 94/60
[2017-06-10 07:29] VITALS: BP 101/64
[2017-06-10 08:34] LABS: BASOPHILS % (AUTO) 0 % (0-1); EOSINOPHILS % (AUTO) 0 % (1-7); LYMPHOCYTES # (AUTO) 0.45 x10^3/uL (1-3.4); LYMPHOCYTES % (AUTO) 5 % (22-44); MD NO; MEAN CORPUSCULAR HEMOGLOBIN 30.1 pg (27.5-34.5); MEAN CORPUSCULAR HGB CONC 31.9 g/dL (33.2-36.2); MEAN CORPUSCULAR VOLUME 94.3 fL (81-97); MEAN PLATELET VOLUME 7.1 fL (7.4-10.4); MONOCYTES # (AUTO) 0.64 x10^3/uL (0.2-0.8); MONOCYTES % (AUTO) 7 % (2-9); NEUTROPHILS # (AUTO) 7.69 x10^3/uL (1.8-6.8); NEUTROPHILS % (AUTO) 88 % (42-75); PLATELET COUNT 284 x10^3/uL (130-400); RED BLOOD COUNT 3.47 x10^6/uL (4.38-5.82); RED CELL DISTRIBUTION WIDTH 15.6 % (9.4-14.8)
[2017-06-10 08:43] LABS: ALANINE AMINOTRANSFERASE 131 U/L (12-78); ALBUMIN 1.9 g/dL (3.4-5.0); ANION GAP 10 mmol/L (5-15); CALCIUM 8.1 mg/dL (8.5-10.1); CHLORIDE 100 mmol/L (98-107); CREATININE 0.96 mg/dL (0.7-1.3)
[2017-06-10 08:46] LABS: ALKALINE PHOSPHATASE 191 U/L (45-117); BILIRUBIN,TOTAL 0.4 mg/dL (0.2-1.0); TOTAL PROTEIN 6.5 g/dL (6.4-8.2)
[2017-06-10] MEDS: METOPROLOL SUCCINATE 100 MG TAB.ER.24H PO SCH (09:00)
[2017-06-10] MEDS: INDOMETHACIN 25 MG CAPSULE PO SCH (09:51)
[2017-06-10] MEDS: DIVALPROEX 125 MG TABLET.DR PO SCH ×2 (09:51→20:04)
[2017-06-10] MEDS: ALLOPURINOL 300 MG TABLET PO SCH (09:51)
[2017-06-10 13:32] VITALS: BP 106/59
[2017-06-10] MEDS: LEVOTHYROXINE 100 MCG TABLET PO SCH (14:37)
[2017-06-10 19:05] VITALS: BP 110/59
[2017-06-10] MEDS: GABAPENTIN 300 MG CAPSULE PO SCH (20:05)
[2017-06-10] MEDS: LOVASTATIN 40 MG TABLET PO SCH (20:05)
[2017-06-11 01:14] VITALS: BP 94/57
[2017-06-11] MEDS: LEVOTHYROXINE 100 MCG TABLET PO SCH (02:44)
[2017-06-11 07:12] VITALS: BP 110/65
[2017-06-11] MEDS: DIVALPROEX 125 MG TABLET.DR PO SCH ×2 (09:18→20:40)
[2017-06-11] MEDS: ALLOPURINOL 300 MG TABLET PO SCH (09:19)
[2017-06-11] MEDS: INDOMETHACIN 25 MG CAPSULE PO SCH (09:20)
[2017-06-11] MEDS: METOPROLOL SUCCINATE 100 MG TAB.ER.24H PO SCH (09:21)
[2017-06-11] MEDS: ACETAMINOPHEN 500 MG TABLET PO PRN ×2 (09:21→20:41)
[2017-06-11 10:04] LABS: BASOPHILS # (AUTO) 0.01 x10^3/uL (0-0.1); BASOPHILS % (AUTO) 0 % (0-1); EOSINOPHILS # (AUTO) 0.02 x10^3/uL (0-0.4); EOSINOPHILS % (AUTO) 0 % (1-7); LYMPHOCYTES # (AUTO) 0.32 x10^3/uL (1-3.4); LYMPHOCYTES % (AUTO) 3 % (22-44); MD NO; MEAN CORPUSCULAR HEMOGLOBIN 30.3 pg (27.5-34.5); MEAN CORPUSCULAR VOLUME 94.6 fL (81-97); MEAN PLATELET VOLUME 7.2 fL (7.4-10.4); MONOCYTES # (AUTO) 0.34 x10^3/uL (0.2-0.8); MONOCYTES % (AUTO) 4 % (2-9); NEUTROPHILS # (AUTO) 9.08 x10^3/uL (1.8-6.8); NEUTROPHILS % (AUTO) 93 % (42-75); PLATELET COUNT 320 x10^3/uL (130-400); RED BLOOD COUNT 3.37 x10^6/uL (4.38-5.82); RED CELL DISTRIBUTION WIDTH 16.2 % (9.4-14.8)
[2017-06-11 10:15] LABS: ALANINE AMINOTRANSFERASE 109 U/L (12-78); ALBUMIN 1.8 g/dL (3.4-5.0); ANION GAP 8 mmol/L (5-15); CALCIUM 8.3 mg/dL (8.5-10.1); CHLORIDE 98 mmol/L (98-107); CREATININE 0.75 mg/dL (0.7-1.3)
[2017-06-11 10:16] LABS: ALKALINE PHOSPHATASE 188 U/L (45-117); BILIRUBIN,TOTAL 0.4 mg/dL (0.2-1.0); TOTAL PROTEIN 6.3 g/dL (6.4-8.2)
[2017-06-11 15:46] VITALS: BP 101/57
[2017-06-11 19:54] VITALS: BP 116/72
[2017-06-11] MEDS: GABAPENTIN 300 MG CAPSULE PO SCH (20:41)
[2017-06-11] MEDS: LOVASTATIN 40 MG TABLET PO SCH (20:41)
[2017-06-11] MEDS: METHOCARBAMOL 750 MG TABLET PO PRN (20:41)
[2017-06-12 01:19] VITALS: BP 105/65
[2017-06-12] MEDS: LEVOTHYROXINE 100 MCG TABLET PO SCH (05:26)
[2017-06-12] MEDS: METHOCARBAMOL 750 MG TABLET PO PRN (05:26)
[2017-06-12 08:00] VITALS: BP 145/84
[2017-06-12] MEDS: ALLOPURINOL 300 MG TABLET PO SCH (08:05)
[2017-06-12] MEDS: DIVALPROEX 125 MG TABLET.DR PO SCH ×2 (08:05→20:40)
[2017-06-12] MEDS: METOPROLOL SUCCINATE 100 MG TAB.ER.24H PO SCH (08:06)
[2017-06-12] MEDS: ACETAMINOPHEN 500 MG TABLET PO PRN (08:06)
[2017-06-12] MEDS: INDOMETHACIN 25 MG CAPSULE PO SCH (08:11)
[2017-06-12] MEDS ORDERED: IRON DEXTRAN IV PER PHARMACY IV PRN (08:30)
[2017-06-12] MEDS ORDERED: IRON DEXTRAN COMPLEX 25 MG in SODIUM CHLORIDE 0.9% 50 ML IV ONE (09:00)
[2017-06-12] MEDS ORDERED: EPINEPHRINE 1 MG/ML, 1ML SQ ONE (09:30)
[2017-06-12] MEDS ORDERED: IRON DEXTRAN COMPLEX 1,650 MG in SODIUM CHLORIDE 0.9% 250 ML IV ONE (11:00)
[2017-06-12 13:48] VITALS: BP 109/56
[2017-06-12 20:21] VITALS: BP 110/68
[2017-06-12] MEDS: GABAPENTIN 300 MG CAPSULE PO SCH (20:40)
[2017-06-12] MEDS: LOVASTATIN 40 MG TABLET PO SCH (20:40)
[2017-06-13 02:20] VITALS: BP 138/77
[2017-06-13] MEDS: LEVOTHYROXINE 100 MCG TABLET PO SCH (06:13)
[2017-06-13 07:42] VITALS: BP 122/72
[2017-06-13] MEDS: DIVALPROEX 125 MG TABLET.DR PO SCH ×2 (10:17→20:29)
[2017-06-13] MEDS: METOPROLOL SUCCINATE 100 MG TAB.ER.24H PO SCH (10:17)
[2017-06-13] MEDS: INDOMETHACIN 25 MG CAPSULE PO SCH (10:17)
[2017-06-13] MEDS: ALLOPURINOL 300 MG TABLET PO SCH (10:17)
[2017-06-13 14:30] VITALS: BP 125/79
[2017-06-13] MEDS: LOVASTATIN 40 MG TABLET PO SCH (20:29)
[2017-06-13] MEDS: GABAPENTIN 300 MG CAPSULE PO SCH (20:29)
[2017-06-13] MEDS: DOCUSATE 100 MG CAPSULE PO PRN (20:29)
[2017-06-13 21:00] VITALS: BP 129/71
[2017-06-13] MEDS: ACETAMINOPHEN 500 MG TABLET PO PRN (23:58)
[2017-06-14] MEDS: DIPHENHYDRAMINE 25 MG CAPSULE PO PRN (01:44)
[2017-06-14 02:03] VITALS: BP 108/54
[2017-06-14] MEDS: LEVOTHYROXINE 100 MCG TABLET PO SCH (05:55)
[2017-06-14 06:36] LABS: ALANINE AMINOTRANSFERASE 57 U/L (12-78); ALBUMIN 1.7 g/dL (3.4-5.0); ANION GAP 5 mmol/L (5-15); CALCIUM 8.1 mg/dL (8.5-10.1); CHLORIDE 97 mmol/L (98-107)
[2017-06-14 06:39] LABS: ALKALINE PHOSPHATASE 180 U/L (45-117); BILIRUBIN,TOTAL 0.4 mg/dL (0.2-1.0); CREATININE 0.67 mg/dL (0.7-1.3); TOTAL PROTEIN 6.3 g/dL (6.4-8.2)
[2017-06-14 07:16] VITALS: BP 117/67
[2017-06-14] MEDS ORDERED: POTASSIUM CHLORIDE 20 MEQ TAB.ER.PRT PO ONE (07:30)
[2017-06-14] MEDS: INDOMETHACIN 25 MG CAPSULE PO SCH (09:32)
[2017-06-14] MEDS: DOCUSATE 100 MG CAPSULE PO PRN (09:32)
[2017-06-14] MEDS: METHOCARBAMOL 750 MG TABLET PO PRN ×2 (09:32→21:20)
[2017-06-14] MEDS: ACETAMINOPHEN 500 MG TABLET PO PRN (09:32)
[2017-06-14] MEDS: ALLOPURINOL 300 MG TABLET PO SCH (09:32)
[2017-06-14] MEDS: METOPROLOL SUCCINATE 100 MG TAB.ER.24H PO SCH (09:33)
[2017-06-14] MEDS: DIVALPROEX 125 MG TABLET.DR PO SCH ×2 (09:33→21:15)
[2017-06-14 13:08] VITALS: BP 135/78
[2017-06-14 19:08] VITALS: BP 118/65
[2017-06-14] MEDS: LOVASTATIN 40 MG TABLET PO SCH (21:15)
[2017-06-14] MEDS: GABAPENTIN 300 MG CAPSULE PO SCH (21:15)
[2017-06-15 01:29] VITALS: BP 125/67
[2017-06-15] MEDS: LEVOTHYROXINE 100 MCG TABLET PO SCH (05:49)
[2017-06-15 06:44] VITALS: BP 132/72
[2017-06-15] MEDS: METOPROLOL SUCCINATE 100 MG TAB.ER.24H PO SCH (09:07)
[2017-06-15] MEDS: ALLOPURINOL 300 MG TABLET PO SCH (09:07)
[2017-06-15] MEDS: METHOCARBAMOL 750 MG TABLET PO PRN ×2 (09:07→21:05)
[2017-06-15] MEDS: DIVALPROEX 125 MG TABLET.DR PO SCH ×2 (09:07→21:05)
[2017-06-15] MEDS: POTASSIUM CHLORIDE 20 MEQ TAB.ER.PRT PO SCH (09:07)
[2017-06-15] MEDS: ACETAMINOPHEN 500 MG TABLET PO PRN (09:07)
[2017-06-15] MEDS: INDOMETHACIN 25 MG CAPSULE PO SCH (09:07)
[2017-06-15 12:23] VITALS: BP 142/81
[2017-06-15 19:22] VITALS: BP 129/73
[2017-06-15] MEDS: LOVASTATIN 40 MG TABLET PO SCH (21:04)
[2017-06-15] MEDS: GABAPENTIN 300 MG CAPSULE PO SCH (21:04)
[2017-06-16 01:19] VITALS: BP 145/79
[2017-06-16] MEDS: LEVOTHYROXINE 100 MCG TABLET PO SCH (06:29)
[2017-06-16 07:02] VITALS: BP 141/85
[2017-06-16] MEDS: METOPROLOL SUCCINATE 100 MG TAB.ER.24H PO SCH (08:46)
[2017-06-16] MEDS: POTASSIUM CHLORIDE 20 MEQ TAB.ER.PRT PO SCH (08:46)
[2017-06-16] MEDS: METHOCARBAMOL 750 MG TABLET PO PRN ×2 (08:46→21:12)
[2017-06-16] MEDS: INDOMETHACIN 25 MG CAPSULE PO SCH (08:46)
[2017-06-16] MEDS: ACETAMINOPHEN 500 MG TABLET PO PRN (08:46)
[2017-06-16] MEDS: ALLOPURINOL 300 MG TABLET PO SCH (08:47)
[2017-06-16] MEDS: DIVALPROEX 125 MG TABLET.DR PO SCH ×2 (08:47→21:12)
[2017-06-16 13:29] VITALS: BP 121/63
[2017-06-16 19:59] VITALS: BP 120/61
[2017-06-16] MEDS: LOVASTATIN 40 MG TABLET PO SCH (21:12)
[2017-06-16] MEDS: GABAPENTIN 300 MG CAPSULE PO SCH (21:12)
[2017-06-16] MEDS: DIPHENHYDRAMINE 25 MG CAPSULE PO PRN (21:13)
[2017-06-17 01:19] VITALS: BP 127/69
[2017-06-17 06:42] VITALS: BP 139/75
[2017-06-17] MEDS: DIVALPROEX 125 MG TABLET.DR PO SCH (09:25)
[2017-06-17] MEDS: ALLOPURINOL 300 MG TABLET PO SCH (09:25)
[2017-06-17] MEDS: LEVOTHYROXINE 100 MCG TABLET PO SCH (09:25)
[2017-06-17] MEDS: METHOCARBAMOL 750 MG TABLET PO PRN (09:25)
[2017-06-17] MEDS: POTASSIUM CHLORIDE 20 MEQ TAB.ER.PRT PO SCH (09:25)
[2017-06-17] MEDS: METOPROLOL SUCCINATE 100 MG TAB.ER.24H PO SCH (09:25)
[2017-06-17] MEDS: INDOMETHACIN 25 MG CAPSULE PO SCH (09:25)
== END 2017-06-17 12:02 | DRG 189 ==
LOC: ED 17:23 → EDIP 18:18 → 3NE 20:14
PROVIDERS: ADMIT Internal Medicine; ATTEND Internal Medicine
DX: J96.01 Acute respiratory failure with hypoxia (principal); D69.6 Thrombocytopenia, unspecified; R78.81 Bacteremia; R53.2 Functional quadriplegia; E11.9 Type 2 diabetes mellitus without complications; J90 Pleural effusion, not elsewhere classified; D50.9 Iron deficiency anemia, unspecified; E03.9 Hypothyroidism, unspecified; J44.9 Chronic obstructive pulmonary disease, unspecified; R62.7 Adult failure to thrive; E87.6 Hypokalemia; G89.29 Other chronic pain; M54.9 Dorsalgia, unspecified; I10 Essential (primary) hypertension; M10.9 Gout, unspecified; Z53.20 Procedure and treatment not carried out because of patient's decision for unspecified reasons; Z79.891 Long term (current) use of opiate analgesic; Z79.899 Other long term (current) drug therapy; Z87.891 Personal history of nicotine dependence; I71.4 Abdominal aortic aneurysm, without rupture
CPT/HCPCS: 36415; 36600; 70450; 71045; 72132; 76700; 80048; 80053; 81001; 82542; 82607; 82728; 82746; 82803; 82962; 83036; 83540; 83550; 83605; 83735; 84100; 84439; 84443; 84484; 85014; 85018; 85025; 85610; 85730; 86803; 87040; 87806; 93005; 94640; 99285; J1750; J1940; J3370; J7644; Q0162; Q9967; G0475; J7030; J7050; Q0163

== ENCOUNTER 2017-10-27 12:59 | Observation (INO) | payer OTHER ==
[~2017-10-27] VITALS: Ht 182.9 cm; Wt 83.5 kg
[~2017-10-27 12:59] MED LIST changes: +ALLO300T PO; +CHOL2000 PO; +DIPH25CA61 PO; +DIPH28CR5 TP; +DOCU-131 PO; +DOXY100T PO; +FAMO20TA7 PO; +FERR324T5 PO; +FURO40TA6 PO; +GABA300C10 PO; +HIGH CHOL; +HYDR1TAB12 PO; -INDO25CA PO; +INDO25CA5 PO; +LEVO100T5 PO; +METH750T87 PO
[2017-10-27] MEDS ORDERED: SODIUM CHLORIDE 0.9% 1,000ML IVBOLUS ONE (13:30)
[2017-10-27 14:00] LABS: BASOPHILS # (AUTO) 0.14 x10^3/uL (0-0.1); BASOPHILS % (AUTO) 1 % (0-1); EOSINOPHILS # (AUTO) 0.36 x10^3/uL (0-0.4); EOSINOPHILS % (AUTO) 3 % (1-7); LYMPHOCYTES # (AUTO) 2.04 x10^3/uL (1-3.4); LYMPHOCYTES % (AUTO) 18 % (22-44); MD NO; MEAN CORPUSCULAR HEMOGLOBIN 31.4 pg (27.5-34.5); MEAN CORPUSCULAR HGB CONC 32.4 g/dL (33.2-36.2); MEAN CORPUSCULAR VOLUME 96.9 fL (81-97); MEAN PLATELET VOLUME 7.3 fL (7.4-10.4); MONOCYTES # (AUTO) 0.87 x10^3/uL (0.2-0.8); MONOCYTES % (AUTO) 8 % (2-9); NEUTROPHILS # (AUTO) 8.06 x10^3/uL (1.8-6.8); NEUTROPHILS % (AUTO) 70 % (42-75); PLATELET COUNT 202 x10^3/uL (130-400); RED BLOOD COUNT 3.96 x10^6/uL (4.38-5.82); RED CELL DISTRIBUTION WIDTH 19.3 % (9.4-14.8)
[2017-10-27 14:02] LABS: ALBUMIN 2.7 g/dL (3.4-5.0); ANION GAP 8 mmol/L (5-15); CALCIUM 9.8 mg/dL (8.5-10.1); CHLORIDE 100 mmol/L (98-107)
[2017-10-27 14:08] LABS: ALANINE AMINOTRANSFERASE 6 U/L (12-78); ALKALINE PHOSPHATASE 85 U/L (45-117); BILIRUBIN,TOTAL 0.4 mg/dL (0.2-1.0); CREATININE 1.13 mg/dL (0.7-1.3); TOTAL PROTEIN 7.8 g/dL (6.4-8.2)
[2017-10-27 17:25] VITALS: BP 107/69
[2017-10-27] MEDS ORDERED: ENALAPRILAT 1.25 MG/ML, 2ML IVPush PRN (18:00)
[2017-10-27] MEDS ORDERED: METHOCARBAMOL 750 MG TABLET PO PRN (18:00)
[2017-10-27] MEDS ORDERED: DIPHENHYDRAMINE 25 MG CAPSULE PO PRN (18:00)
[2017-10-27] MEDS ORDERED: DOCUSATE 100 MG CAPSULE PO PRN (18:00)
[2017-10-27] MEDS ORDERED: ACETAMINOPHEN 325 MG TABLET PO PRN (18:00)
[2017-10-27] MEDS ORDERED: DIPHENHYDRAMINE 50 MG/ML, 1ML IVPush PRN (18:00)
[2017-10-27 18:30] VITALS: BP 107/73
[2017-10-27] MEDS: DOXYCYCLINE 100MG TABLET PO SCH (21:14)
[2017-10-27] MEDS: DIVALPROEX 125 MG TABLET.DR PO SCH (21:15)
[2017-10-27] MEDS: GABAPENTIN 300 MG CAPSULE PO SCH (21:15)
[2017-10-27] MEDS: ENOXAPARIN 40 MG/0.4 ML SQ SCH (21:26)
[2017-10-28] MEDS: DIPHENHYDRAMINE/ZINC CRM 2%, 30GM TP PRN ×3 (00:25→20:21)
[2017-10-28 00:36] VITALS: BP 122/81
[2017-10-28 05:14] LABS: ANION GAP 5 mmol/L (5-15); CALCIUM 9.3 mg/dL (8.5-10.1); CHLORIDE 102 mmol/L (98-107)
[2017-10-28 05:16] LABS: MEAN CORPUSCULAR HEMOGLOBIN 31.8 pg (27.5-34.5); MEAN CORPUSCULAR HGB CONC 32.7 g/dL (33.2-36.2); MEAN CORPUSCULAR VOLUME 97.3 fL (81-97); MEAN PLATELET VOLUME 7.3 fL (7.4-10.4); PLATELET COUNT 161 x10^3/uL (130-400); RED BLOOD COUNT 3.57 x10^6/uL (4.38-5.82); RED CELL DISTRIBUTION WIDTH 19.3 % (9.4-14.8)
[2017-10-28 05:17] LABS: CREATININE 0.99 mg/dL (0.7-1.3)
[2017-10-28 05:46] LABS: BASOPHILS # (AUTO) 0.04 x10^3/uL (0-0.1); BASOPHILS % (AUTO) 1 % (0-1); EOSINOPHILS # (AUTO) 0.39 x10^3/uL (0-0.4); EOSINOPHILS % (AUTO) 5 % (1-7); LYMPHOCYTES # (AUTO) 2.14 x10^3/uL (1-3.4); LYMPHOCYTES % (AUTO) 27 % (22-44); MONOCYTES # (AUTO) 0.63 x10^3/uL (0.2-0.8); MONOCYTES % (AUTO) 8 % (2-9); NEUTROPHILS # (AUTO) 4.75 x10^3/uL (1.8-6.8); NEUTROPHILS % (AUTO) 60 % (42-75)
[2017-10-28 05:48] LABS: MD SCAN
[2017-10-28 07:11] VITALS: BP 90/57
[2017-10-28] MEDS: (Tiotropium Bromide** (Spiriva**) 18 MCG) INH SCH (09:00)
[2017-10-28] MEDS: FERROUS SULFATE 325 MG TABLET PO SCH (09:53)
[2017-10-28] MEDS: CHOLECALCIFEROL 1,000 UNIT TABLET PO SCH (09:53)
[2017-10-28] MEDS: DOXYCYCLINE 100MG TABLET PO SCH ×2 (09:53→20:21)
[2017-10-28] MEDS: DIVALPROEX 125 MG TABLET.DR PO SCH ×2 (09:53→20:21)
[2017-10-28] MEDS: ALLOPURINOL 300 MG TABLET PO SCH (09:53)
[2017-10-28] MEDS: LEVOTHYROXINE 100 MCG TABLET PO SCH (09:54)
[2017-10-28 14:19] VITALS: BP 100/62
[2017-10-28 19:34] VITALS: BP 118/69
[2017-10-28] MEDS: ENOXAPARIN 40 MG/0.4 ML SQ SCH (20:21)
[2017-10-28] MEDS: GABAPENTIN 300 MG CAPSULE PO SCH (20:21)
[2017-10-28 21:15] LABS: MICROSCOPIC NOT IND
[2017-10-29 01:52] VITALS: BP 97/62
[2017-10-29 05:13] LABS: BASOPHILS # (AUTO) 0.07 x10^3/uL (0-0.1); BASOPHILS % (AUTO) 1 % (0-1); EOSINOPHILS # (AUTO) 0.52 x10^3/uL (0-0.4); EOSINOPHILS % (AUTO) 7 % (1-7); LYMPHOCYTES # (AUTO) 1.71 x10^3/uL (1-3.4); LYMPHOCYTES % (AUTO) 23 % (22-44); MD NO; MEAN CORPUSCULAR HGB CONC 31.9 g/dL (33.2-36.2); MEAN CORPUSCULAR VOLUME 97.4 fL (81-97); MEAN PLATELET VOLUME 7.6 fL (7.4-10.4); MONOCYTES # (AUTO) 0.53 x10^3/uL (0.2-0.8); MONOCYTES % (AUTO) 7 % (2-9); NEUTROPHILS # (AUTO) 4.54 x10^3/uL (1.8-6.8); NEUTROPHILS % (AUTO) 62 % (42-75); PLATELET COUNT 162 x10^3/uL (130-400); RED BLOOD COUNT 3.49 x10^6/uL (4.38-5.82); RED CELL DISTRIBUTION WIDTH 20.1 % (9.4-14.8)
[2017-10-29 05:17] LABS: ANION GAP 8 mmol/L (5-15); CHLORIDE 101 mmol/L (98-107); CREATININE 0.96 mg/dL (0.7-1.3)
[2017-10-29 06:45] VITALS: BP 95/59
[2017-10-29] MEDS: FERROUS SULFATE 325 MG TABLET PO SCH (08:57)
[2017-10-29] MEDS: CHOLECALCIFEROL 1,000 UNIT TABLET PO SCH (08:57)
[2017-10-29] MEDS: DOXYCYCLINE 100MG TABLET PO SCH ×2 (08:57→21:46)
[2017-10-29] MEDS: CETIRIZINE 10 MG TABLET PO SCH (08:58)
[2017-10-29] MEDS: ALLOPURINOL 300 MG TABLET PO SCH (08:58)
[2017-10-29] MEDS: LEVOTHYROXINE 100 MCG TABLET PO SCH (08:58)
[2017-10-29] MEDS: FAMOTIDINE 20 MG TABLET PO SCH ×2 (08:58→21:46)
[2017-10-29] MEDS: DIVALPROEX 125 MG TABLET.DR PO SCH ×2 (08:58→21:49)
[2017-10-29] MEDS: (Tiotropium Bromide** (Spiriva**) 18 MCG) INH SCH (09:00)
[2017-10-29 12:14] VITALS: BP 108/66
[2017-10-29] MEDS: DIPHENHYDRAMINE/ZINC CRM 2%, 30GM TP PRN ×2 (16:29→21:50)
[2017-10-29 19:42] VITALS: BP 115/64
[2017-10-29] MEDS: GABAPENTIN 300 MG CAPSULE PO SCH (21:45)
[2017-10-29] MEDS: ENOXAPARIN 40 MG/0.4 ML SQ SCH (21:49)
[2017-10-30 02:16] VITALS: BP 110/69
[2017-10-30] MEDS: DOXYCYCLINE 100MG TABLET PO SCH ×2 (08:15→21:24)
[2017-10-30] MEDS: CHOLECALCIFEROL 1,000 UNIT TABLET PO SCH (08:15)
[2017-10-30] MEDS: CETIRIZINE 10 MG TABLET PO SCH (08:15)
[2017-10-30] MEDS: LEVOTHYROXINE 100 MCG TABLET PO SCH (08:15)
[2017-10-30] MEDS: FAMOTIDINE 20 MG TABLET PO SCH ×2 (08:15→21:25)
[2017-10-30] MEDS: DIVALPROEX 125 MG TABLET.DR PO SCH ×2 (08:15→21:25)
[2017-10-30] MEDS: (Tiotropium Bromide** (Spiriva**) 18 MCG) INH SCH (08:16)
[2017-10-30] MEDS: ALLOPURINOL 300 MG TABLET PO SCH (08:16)
[2017-10-30 08:18] VITALS: BP 108/70
[2017-10-30] MEDS: FERROUS SULFATE 325 MG TABLET PO SCH (08:20)
[2017-10-30 14:30] VITALS: BP 102/65
[2017-10-30 19:51] VITALS: BP 114/67
[2017-10-30] MEDS: GABAPENTIN 300 MG CAPSULE PO SCH (21:24)
[2017-10-30] MEDS: ENOXAPARIN 40 MG/0.4 ML SQ SCH (21:25)
[2017-10-30] MEDS: DIPHENHYDRAMINE/ZINC CRM 2%, 30GM TP PRN (21:58)
[2017-10-31 02:29] VITALS: BP 110/71
[2017-10-31 08:00] VITALS: BP 109/68
[2017-10-31] MEDS: (Tiotropium Bromide** (Spiriva**) 18 MCG) INH SCH (09:00)
[2017-10-31] MEDS: ALLOPURINOL 300 MG TABLET PO SCH (09:30)
[2017-10-31] MEDS: FAMOTIDINE 20 MG TABLET PO SCH ×2 (09:30→21:12)
[2017-10-31] MEDS: FERROUS SULFATE 325 MG TABLET PO SCH (09:30)
[2017-10-31] MEDS: DIVALPROEX 125 MG TABLET.DR PO SCH ×2 (09:30→21:12)
[2017-10-31] MEDS: CHOLECALCIFEROL 1,000 UNIT TABLET PO SCH (09:31)
[2017-10-31] MEDS: DOXYCYCLINE 100MG TABLET PO SCH ×2 (09:31→21:12)
[2017-10-31] MEDS: CETIRIZINE 10 MG TABLET PO SCH (09:31)
[2017-10-31] MEDS: DIPHENHYDRAMINE/ZINC CRM 2%, 30GM TP PRN (09:32)
[2017-10-31] MEDS: LEVOTHYROXINE 100 MCG TABLET PO SCH (09:34)
[2017-10-31 13:21] VITALS: BP 96/64
[2017-10-31 19:15] VITALS: BP 98/64
[2017-10-31] MEDS: GABAPENTIN 300 MG CAPSULE PO SCH (21:12)
[2017-10-31] MEDS: ENOXAPARIN 40 MG/0.4 ML SQ SCH (21:12)
[2017-11-01 00:25] VITALS: BP 121/75
[2017-11-01 07:29] VITALS: BP 99/64
[2017-11-01] MEDS: CHOLECALCIFEROL 1,000 UNIT TABLET PO SCH (08:59)
[2017-11-01] MEDS: FAMOTIDINE 20 MG TABLET PO SCH ×2 (08:59→21:14)
[2017-11-01] MEDS: (Tiotropium Bromide** (Spiriva**) 18 MCG) INH SCH (09:00)
[2017-11-01] MEDS: CETIRIZINE 10 MG TABLET PO SCH (09:00)
[2017-11-01] MEDS: FERROUS SULFATE 325 MG TABLET PO SCH (09:00)
[2017-11-01] MEDS: DIVALPROEX 125 MG TABLET.DR PO SCH ×2 (09:00→21:11)
[2017-11-01] MEDS: LEVOTHYROXINE 100 MCG TABLET PO SCH (09:00)
[2017-11-01] MEDS: DOXYCYCLINE 100MG TABLET PO SCH ×2 (09:00→21:11)
[2017-11-01] MEDS: ALLOPURINOL 300 MG TABLET PO SCH (09:07)
[2017-11-01 13:55] VITALS: BP 94/61
[2017-11-01 19:41] VITALS: BP 97/60
[2017-11-01] MEDS: GABAPENTIN 300 MG CAPSULE PO SCH (21:11)
[2017-11-01] MEDS: ENOXAPARIN 40 MG/0.4 ML SQ SCH (21:11)
[2017-11-02 01:10] VITALS: BP 102/84
[2017-11-02 08:00] VITALS: BP 96/62
[2017-11-02] MEDS: (Tiotropium Bromide** (Spiriva**) 18 MCG) INH SCH (08:44)
[2017-11-02] MEDS: CHOLECALCIFEROL 1,000 UNIT TABLET PO SCH (08:45)
[2017-11-02] MEDS: FERROUS SULFATE 325 MG TABLET PO SCH (08:45)
[2017-11-02] MEDS: FAMOTIDINE 20 MG TABLET PO SCH ×2 (08:45→21:36)
[2017-11-02] MEDS: DOXYCYCLINE 100MG TABLET PO SCH ×2 (08:45→21:36)
[2017-11-02] MEDS: CETIRIZINE 10 MG TABLET PO SCH (08:45)
[2017-11-02] MEDS: LEVOTHYROXINE 100 MCG TABLET PO SCH (08:46)
[2017-11-02] MEDS: ALLOPURINOL 300 MG TABLET PO SCH (08:53)
[2017-11-02] MEDS: DIVALPROEX 125 MG TABLET.DR PO SCH ×2 (10:26→21:36)
[2017-11-02 13:53] VITALS: BP 99/58
[2017-11-02 19:12] VITALS: BP 107/69
[2017-11-02] MEDS: GABAPENTIN 300 MG CAPSULE PO SCH (21:36)
[2017-11-02] MEDS: ENOXAPARIN 40 MG/0.4 ML SQ SCH (21:36)
[2017-11-03 00:44] VITALS: BP 105/64
[2017-11-03] MEDS: (Tiotropium Bromide** (Spiriva**) 18 MCG) INH SCH (08:19)
[2017-11-03] MEDS: DOXYCYCLINE 100MG TABLET PO SCH (09:00)
[2017-11-03] MEDS: DIVALPROEX 125 MG TABLET.DR PO SCH (09:00)
[2017-11-03] MEDS: CETIRIZINE 10 MG TABLET PO SCH (09:01)
[2017-11-03] MEDS: CHOLECALCIFEROL 1,000 UNIT TABLET PO SCH (09:01)
[2017-11-03] MEDS: LEVOTHYROXINE 100 MCG TABLET PO SCH (09:01)
[2017-11-03] MEDS: ALLOPURINOL 300 MG TABLET PO SCH (09:02)
[2017-11-03] MEDS: FERROUS SULFATE 325 MG TABLET PO SCH (09:03)
[2017-11-03] MEDS: FAMOTIDINE 20 MG TABLET PO SCH (09:07)
[2017-11-03 09:10] VITALS: BP 115/72
[2017-11-03] MEDS ORDERED: CETI10TA18 PO (13:41)
[2017-11-03] MEDS ORDERED: FAMO20TA7 PO (13:41)
== END 2017-11-03 15:16 | disposition home or self-care (01) ==
LOC: ED 15:05 → INTOOBSV 15:57 → EDIP 15:57 → 3NE 17:41
PROVIDERS: ADMIT Family Medicine; ATTEND Family Medicine
DX: L03.032 Cellulitis of left toe (principal); F11.20 Opioid dependence, uncomplicated; R62.7 Adult failure to thrive; R53.81 Other malaise; E11.9 Type 2 diabetes mellitus without complications; E86.0 Dehydration; I10 Essential (primary) hypertension; Z72.0 Tobacco use; G40.909 Epilepsy, unspecified, not intractable, without status epilepticus; J44.9 Chronic obstructive pulmonary disease, unspecified; E78.5 Hyperlipidemia, unspecified; E03.9 Hypothyroidism, unspecified
CPT/HCPCS: 36415; 71045; 80048; 80053; 81003; 83735; 84100; 84550; 85025; 93005; 96360; 96361; 96372; 97163; 97530; 99285; G0378; G8978; G8979; G8980; J1650; J7030; Q0163